=== PATIENT | female | born 1985 | race Caucasian/White ===

== ENCOUNTER → 2020-03-07 10:26 | Outpatient (BNVA) | payer OTHER, MEDICAID, SELFPAY | PROVIDERS: PCP Nurse Practitioner Family; Referring Provider Nurse Practitioner Family; Visit Provider Student in an Organized Health Care Education/Training Program | DX: Z76.89 Persons encountering health services in other specified circumstances (principal) ==

== ENCOUNTER 2021-03-11 11:26 | Outpatient (REF) | payer OTHER, MEDICAID, SELFPAY ==
[2021-03-11 12:37] LABS: Influenza A PCR NEGATIVE (Negative); Influenza B PCR NEGATIVE (Negative); Resp Syncy Virus RNA Qual PCR NEGATIVE (Negative); SARS COV2 PCR INHOUSE NEGATIVE (Negative)
== END 2021-03-11 11:27 | disposition home or self-care (01) ==
LOC: HO.LNP 11:26
PROVIDERS: Visit Provider Internal Medicine
DX: Z20.822 Contact with and (suspected) exposure to COVID-19 (principal); R43.9 Unspecified disturbances of smell and taste
CPT/HCPCS: 0241U

== ENCOUNTER 2021-11-24 13:47 | Outpatient (REF) | payer OTHER, MEDICAID, SELFPAY ==
--- NOTE | ~2021-11-24 | XR_ITS ---
EXAMINATION: XR LUMBOSACRAL SPINE CLINICAL INFORMATION: Low back pain. COMPARISON: Lumbar spine 01/23/2019 TECHNIQUE: Three views of the lumbosacral spine. FINDINGS: The vertebral bodies and posterior elements are normal. The disc spaces are preserved and the vertebral alignment is normal. The paraspinal soft tissues are normal. IUD within the pelvis. XR/XR lumbar spine 2-3V IMPRESSION: Unremarkable examination.
== END 2021-11-24 13:48 | disposition home or self-care (01) ==
LOC: HO.HMGCX 13:47
PROVIDERS: PCP Nurse Practitioner Family; Visit Provider Nurse Practitioner Family
DX: M54.50 Low back pain, unspecified (principal)
CPT/HCPCS: 72100

== ENCOUNTER 2023-02-11 08:21 | Outpatient (AMB) | payer OTHER, MEDICAID, SELFPAY ==
--- NOTE | 2023-02-11 08:27 | MHC.OFFWIV ---
Intake Vital Signs 02/11/23 08:34 Weight 126 lb BP 110/76 Blood Pressure Location Rt brachial Position Sitting Pulse 102 H Pulse Source Pulse Oximeter Pulse Oximetry (%) 96 Oxygen Delivery Method Room Air Intake Visit Reasons: EP-Sinus?/[phone] Intake Note: Patient here for sinus infection, chest congestion,cough, headaches and pressure. Patient Tobacco Use Status: Current everyday Tobacco user Allergies No Known Allergies [No Known Allergies*] Allergy (Verified 02/11/23 08:28) Do you need a note to return to daycare/school/sports/work: No HPI HPI Comments History of Present Illness Details 37-year-old female presents for concern of sinus infection. Patient states that she developed a cold approximately 10 days ago spreads sinus pressure nasal congestion occasional discharge pleuritic chest pain denies any leg swelling fever chills calf tenderness. [facility] Medical History (Updated 02/11/23 @ 08:59 by YESICA Levin) TMJ (dislocation of temporomandibular joint) Depression Anxiety Nemaline myopathy Family History Father Substance use disorder Maternal Grandfather Substance use disorder Sister Mental health disorder Social History Housing: House Alcohol intake: never Patient Tobacco Use Status: Current everyday Tobacco user Cigarette Packs Per Day: 1 e-Cigarette/Vaping Use: Never Used Second Hand Smoke Exposure: Yes service: No Current occupational status: employed Current occupation: [employer] Current occupational exposures/hazards: Yes Cognitive needs: No Hearing needs: No Vision needs: No Review of Systems Const All systems reviewed & are unremarkable except as noted in HPI and below ENT Reports nasal congestion and Reports nasal discharge Resp Reports chest congestion and Reports cough Physical Exam Vital Signs: Last Vital Signs Pulse 102 H 02/11/23 08:34 BP 110/76 02/11/23 08:34 Pulse Ox 96 02/11/23 08:34 Oxygen Delivery Method Room Air 02/11/23 08:34 Const General: cooperative, no acute distress and alert Orientation/consciousness: patient oriented x3 Limitations: no limitations HEENT Other: TTP over the maxillary sinuses bilaterally Head: Yes normal to inspection Ears: hearing grossly normal bilaterally and external ears normal General nose exam: Normal external nose present Eyes General: appearance normal, both eyes and all related structures Neck Neck: Yes normal visual inspection Chest Chest palpation & inspection: normal inspection of the chest Resp Effort & Inspection: normal respiratory effort, able to speak in complete sentences and no audible wheezes Auscultation: clear to auscultation bilaterally Cardio Rate: regular rate Rhythm: regular rhythm GI Inspection: Yes normal to inspection Palpation (GI): Soft to palpation and nontender Skin General skin exam: no rashes or lesions noted Neuro General: patient oriented x3 Psych Appearance: grossly normal Mental Status: mental status grossly normal Speech and movement: Normal speech and movement present Affect: normal affect Attitude: cooperative Thought process: Normal thought process present Thought content: Normal thought content present Assessment & Plan Assessment & Plan (1) Sinusitis: Code(s): J32.9 - Chronic sinusitis, unspecified Qualifiers: Sinusitis location: maxillary Chronicity: acute Recurrence: not specified as recurrent Qualified Code(s): J01.00 - Acute maxillary sinusitis, unspecified Plan: VSS. Exam patient presents alert oriented no distress tenderness to palpation of maxillary sinuses given duration of symptoms and history of sinus infection will treat with Augmentin in saline nasal spray. Discharge instructions, follow up and treatment are discussed with patient in my usual fashion. Alternatives in treatment are also discussed. The patient will return for worsening symptoms or as needed. Advised that any labs/imaging ordered will be followed up on and contact made if further treatment needed. Counseled that patient's condition may require further evaluation and/or treatment. Symptoms of concern for worsening disorder discussed in detail in my customary manner. Patient does verbalize understanding of the plan, there are no apparent barriers to communication. The patient is given the opportunity to ask questions and have them answered to his/her satisfaction Medications: New amoxicillin-pot clavulanate 875-125 mg 1 tab PO BID 7 days 14 tabs 0RF sodium chloride 0.65% (Saline Mist) 2 sprays intranasal QID PRN 44 mL 0RF dry nasal passages Coding Level of Care Code Est Pt Level 3 (54077) Diagnoses Acute maxillary sinusitis, recurrence not specified J01.00 Sinusitis location: maxillary Chronicity: acute Recurrence: not specified as recurrent
[2023-02-11 08:34] VITALS: BP 110/76; PULSE 102; O2SAT 96
== END 2023-02-11 08:54 | disposition home or self-care (01) ==
PROVIDERS: PCP Nurse Practitioner Family; Visit Provider Physician Assistant
DX: J01.00 Acute maxillary sinusitis, unspecified (principal)
CPT/HCPCS: 99213

== ENCOUNTER 2023-06-02 08:23 | Outpatient (AMB) | payer OTHER, MEDICAID, SELFPAY ==
[2023-06-02 08:51] VITALS: BP 118/68; PULSE 97; TEMP 36.4; O2SAT 97; BMI 20.5
--- NOTE | 2023-06-02 08:51 | AM.OFFWIN_ITS ---
Intake Vital Signs 06/02/23 08:51 Height 5 ft 6 in Weight 127 lb BMI 20.5 BP 118/68 Blood Pressure Location Lt brachial Position Sitting Pulse 97 Pulse Source Pulse Oximeter Temp 97.6 F Pulse Oximetry (%) 97 Oxygen Delivery Method Room Air Intake Visit Reasons: EST/sinus pressure/congestion ([phone]) Intake Note: pt is here today for sinus pressure congestion started wednesday Patient Tobacco Use Status: Current everyday Tobacco user Allergies No Known Allergies [No Known Allergies*] Allergy (Verified 06/02/23 08:51) Do you need a note to return to daycare/school/sports/work: Yes HPI EST/sinus pressure/congestion ([phone]) HPI Details This is a 37-year-old female patient who presents today for a sick visit. States that she tested positive for COVID 10 days ago. Most of her symptoms have resolved, however she has developed worsening sinus pressure and productive cough. She states she does get sinus infections following respiratory illnesses. Denies any fever/chills. Denies shortness of breath. [facility] Medical History TMJ (dislocation of temporomandibular joint) Depression Anxiety Nemaline myopathy Family History Father Substance use disorder Maternal Grandfather Substance use disorder Sister Mental health disorder Social History Housing: House Alcohol intake: never Patient Tobacco Use Status: Current everyday Tobacco user Cigarette Packs Per Day: 1 e-Cigarette/Vaping Use: Never Used Second Hand Smoke Exposure: Yes service: No Current occupational status: employed Current occupation: [employer] Current occupational exposures/hazards: Yes Cognitive needs: No Hearing needs: No Vision needs: No Review of Systems Const All systems reviewed & are unremarkable except as noted in HPI and below Physical Exam Vital Signs: Last Vital Signs Temp 97.6 F 06/02/23 08:51 Pulse 97 06/02/23 08:51 BP 118/68 06/02/23 08:51 Pulse Ox 97 06/02/23 08:51 Oxygen Delivery Method Room Air 06/02/23 08:51 BMI result Body Mass Index 20.5 Const General: cooperative and no acute distress Nutritional Appearance: average body habitus HEENT Head: Yes normal to inspection Ears: hearing grossly normal bilaterally General nose exam: Normal external nose present and Nasal discharge present mucoid Face and sinus: Yes sinus tenderness (frontal/maxillary) Mouth: Normal oral and palatal mucosa present Neck Neck: Yes no lymphadenopathy Resp Effort & Inspection: normal respiratory effort and Actively coughing Quality: p roductive Auscultation: clear to auscultation bilaterally Cardio Jugular venous distension: no JVD Palpation: normal PMI Rate: regular rate Rhythm: regular rhythm Skin General skin exam: no rashes or lesions noted Extrem General: Yes capillary refill normal and Yes no clubbing, cyanosis or edema Psych Appearance: grossly normal Mental Status: mental status grossly normal Speech and movement: Normal speech and movement present Assessment & Plan Assessment & Plan (1) Acute maxillary sinusitis: Code(s): J01.00 - Acute maxillary sinusitis, unspecified Qualifiers: Recurrence: non-recurrent Qualified Code(s): J01.00 - Acute maxillary sinusitis, unspecified Plan: Patient has done well in previous years when developing sinusitis on augmentin. Will start her on this. We reviewed indications, use, possible side effects. I also recommended she try some [id number] decongestants. Advised rest, hydration, increase vitamin C intake. If she does not improve with treatment, or symptoms worsen/new symptoms develop, she should return to the clinic for further evaluation. She verbalizes understanding and agrees to plan. Work note provided. Medications: Refilled amoxicillin-pot clavulanate 875-125 mg 1 tab PO BID 14 tabs 0RF 7 days J01.00 - Acute maxillary sinusitis, unspecified Coding Level of Care Code Est Pt Level 3 (05327) Diagnoses Acute non-recurrent maxillary sinusitis J01.00 Recurrence: non-recurrent
== END 2023-06-02 09:21 | disposition home or self-care (01) ==
PROVIDERS: PCP Nurse Practitioner Family; Visit Provider Nurse Practitioner Family
DX: J01.00 Acute maxillary sinusitis, unspecified (principal)
CPT/HCPCS: 99213

== ENCOUNTER 2023-12-07 08:15 | Outpatient (AMB) | payer OTHER, MEDICAID, SELFPAY ==
--- NOTE | 2023-12-07 08:22 | A.OFFPC_ITS ---
Vital Signs 12/07/23 08:26 12/07/23 08:45 Height 5 ft 6 in Weight 126 lb BMI 20.3 BP 110/70 Blood Pressure Location Rt brachial Position Sitting Pulse 110 H 86 Pulse Source Pulse Oximeter Pulse Oximetry (%) 97 Oxygen Delivery Method Room Air Intake Visit Reasons: PE Intake Note: Patient here for physical exam. Pap: unknown due for one Allergies oxycodone Adverse Reaction (Mild, Uncoded 12/07/23 08:27) Hives Medication List - Last Reconciled 12/07/23 by SHERLYN Sierra acetaminophen (Tylenol Extra Strength) 1,000 mg PO Q6H PRN clonazepam 0.5 mg PO BID PRN copper (ParaGard T 380A) intrauterine ibuprofen 800 mg PO TID PRN loratadine (Claritin) 10 mg PO DAILY mirtazapine 45 mg PO BEDTIME sodium chloride 0.65% (Saline Mist) 2 sprays intranasal QID PRN tizanidine 2 mg PO Q8H PRN 90 days venlafaxine ER 75 mg PO DAILY venlafaxine ER 37.5 mg PO DAILY Tobacco use date assessed: 12/07/23 Dental Screening Dental Screen Date: 12/07/23 Did you have a dental visit in the last 12 months?: Yes Did you have a dental problem in the last 6 months where you did not have access to dental care?: No Was dental information given to patient?: Patient has dentist HPI PE HPI Details Pt is here for a PE. Will order labs. 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 Pt has a family hx of breast cancer (maternal grandmother). Will order mammogram. She recently underwent a hiatal hernia repair. She reports doing well. Pt sees a psychiatrist and therapist. 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) Depression Anxiety Nemaline myopathy Surgical History Hx of esophageal hernia repair Family History Father Substance use disorder Maternal Grandfather Substance use disorder Sister Mental health disorder Social History Housing: House Alcohol intake: never Patient Tobacco Use Status: Current everyday Tobacco user Cigarette Packs Per Day: 1 e-Cigarette/Vaping Use: Never Used Second Hand Smoke Exposure: Yes service: No Current occupational status: employed Current occupation: [employer] Current occupational exposures/hazards: Yes Cognitive needs: No Hearing needs: No Vision needs: No Questionnaire PHQ-9 Over the last 2 weeks, how often have you been bothered by any of the following problems? 1. Little interest or pleasure in doing things: several days 2. Feeling down, depressed, or hopeless: several days 3. Trouble falling or staying asleep, or sleeping too much: more than half the days 4. Feeling tired or having little energy: more than half the days 5. Poor appetite or overeating: more than half the days 6. Feeling bad about yourself - or that you are a failure or have let yourself or your family down: not at all 7. Trouble concentrating on things, such as reading the newspaper or watching television: several days 8. Moving or speaking so slowly that other people could have noticed. Or the opposite - being so fidgety or restless that you have been moving around a lot more than usual: several days 9. Thoughts that you would be better off or of hurting yourself in some way: not at all Total score: 10 Depression Screening Interpretation: Positive (Denies any SI or HI) Depression Screening Follow-up: Existing condition and In treatment Depression Screening Done: Yes 82688 - PHQ-9 Billing: Yes Source: Developed by Drs. Clayton Mcneil, Tricia Rebolledo, Bipin Bradshaw and colleagues, with an educational jasivr from [employer]. Thrive Questionnaire Date Thrive assessed: 11/30/23 I am a: Patient What is your living situation today?: I have a steady place to live Within the past 12 months, did the food you bought not last and you didn't have the money to get more?: Never true Within the past 12 months, did you worry whether your food would run out before you got money to buy more?: Never true Do you have trouble paying for medicines?: No Do you have trouble getting transportation to medical appointments?: No Do you have trouble paying your heating and electricity bill?: Yes Do you have trouble taking care of your child, family member or friend?: No Do you have trouble with day-to-day activities such as bathing, preparing meals, shopping, managing finances, etc.?: No Are you currently unemployed and looking for a job?: No Are you interested in more education?: No Please select the resources that you would like help with: Housing/Residential Currently or been in a relationship where the following occur: I choose not to answer THRIVE Score: 1 AUDIT C Alcohol Use Questionnaire (AUDIT-C) 1. How often do you have a drink containing alcohol?: Monthly or less 2. How many drinks containing alcohol do you have on a typical day when you are drinking?: 1 or 2 3. How often do you have six or more drinks on one occasion?: Never Total Score: 1 Score Reviewed/Action Taken: Yes MARIA D-7 AMB Questionnaire MARIA D-7 Date MARIA D - 7 assessed: 12/07/23 Feeling nervous, anxious, or on edge: 2 = More than half the days Not being able to stop or control worryin = More than half the days Worrying too much about different things: 2 = More than half the days Trouble relaxin = Nearly every day Being so restless that it is hard to sit still: 3 = Nearly every day Becoming easily annoyed or irritable: 1 = Several days Feeling afraid as if something awful might happen: 1 = Several days Total MARIA D-7 score (0-4 normal; 5-9 mild; 10-14 moderate; 15-21 severe): 14 Source: Developed by Drs. Clayton Mcneil, Tricia Rebolledo, Bipin Bradshaw and colleagues, with an educational jasvir from [employer]. MARIA D-7 Assessment Billing MARIA D-7 Assessment Tool: MARIA D-7 Assessment 37960 Review of Systems Const Denies chills and Denies fever(s) Eyes Denies blurry vision ENT Denies vertigo, Denies dizziness and Denies sore throat Card Denies chest pain at rest, Denies chest pain with activity, Denies diaphoresis, Denies dyspnea and Denies dyspnea on exertion Resp Denies cough, Denies dyspnea, Denies dyspnea on exertion and Denies wheezing GI Denies abdominal pain, Denies melena, Denies hematochezia, Denies constipation, Denies diarrhea and Denies loose stools Denies hematuria Musc Denies numbness and Denies tingling Skin/Breast Denies lesions Neuro Denies vertigo, Denies dizziness, Denies numbness and Denies tingling Psych Denies anxiety, Denies depression, Denies homicidal ideation, Denies suicidal ideation and Denies other (substance abuse) Aller/Immun Denies wheezing Physical exam (Primary Care) Vital Signs: Last Vital Signs Pulse 110 H 12/07/23 08:26 BP 110/70 12/07/23 08:26 Pulse Ox 97 12/07/23 08:26 Oxygen Delivery Method Room Air 12/07/23 08:26 BMI result Body Mass Index 20.3 Tobacco/Smoking Status: Tobacco use Status Tobacco use date assessed 12/07/23 12/07/23 08:30 Patient Tobacco Use Status Current everyday Tobacco 12/07/23 08:24 e-Cigarette/Vaping Use Never Used 12/07/23 08:24 PHQ-9: PHQ-9 Score PHQ-9: Total score 10 12/07/23 08:37 Depression Screening Interpretation: Positive (Denies any SI or HI) Depression Screening Follow-up: Existing condition and In treatment Thrive Assessment: Date of Thrive Assessment Date Thrive assessed 11/30/23 12/07/23 08:24 Currently or been in a relationship where the following occur: I choose not to answer Const General: cooperative Nutritional Appearance: well nourished Orientation/consciousness: patient oriented x3 HENMT Head: Yes normal to inspection, Yes normocephalic and Yes atraumatic Ears: TM's normal bilaterally Eyes General: appearance normal, both eyes and all related structures Alignment and Position: alignment normal and position normal Neck Neck: Yes normal visual inspection and Yes no lymphadenopathy Thyroid: Thyroid normal Resp Effort & Inspection: normal respiratory effort Auscultation: clear to auscultation bilaterally Cardio Rate: regular rate Rhythm: regular rhythm Heart sounds: S1 normal heart sound present, S2 normal heart sound present and no murmurs GI Palpation (GI): Soft to palpation and nontender Auscultation: normal bowel sounds Skin Other: lap sites to abdomen, well approximated, no signs of infection Rashes: no rashes Neuro General: patient oriented x3, moves all extremities, no focal motor deficits and deep tendon reflexes 2+ bilaterally Romberg Test: Negative Psych Appearance: grossly normal Mental Status: mental status grossly normal Speech and movement: Normal speech and movement present Affect: normal affect Attitude: cooperative Thought process: Normal thought process present Thought content: Normal thought content present Insight: Good insight present (Psych) Judgement: Good judgement present (Psych) Assessment and Plan Assessment & Plan (1) Encounter for routine adult physical exam with abnormal findings: Code(s): Z00.01 - Encounter for general adult medical examination with abnormal findings Plan: Labs ordered (2) Family hx-breast malignancy: Code(s): Z80.3 - Family history of malignant neoplasm of breast Plan: Mammo ordered Plan The patient agreed to the use of a electromedical service engineer for this encounter. Scribed for SHERLYN Cobb by Hien Srivastava electromedical service engineer, on 12/07/2023 at 08:40 EST. Orders: Orders Comprehensive [place]. Panel Fast Today Z00.01 - Encounter for general adult medical examination with abnormal findings TSH reflex Free T4 Today Z00.01 - Encounter for general adult medical examination with abnormal findings UA CC w/rflx Micro + Cult Today Z00.01 - Encounter for general adult medical examination with abnormal findings MM screening mammo BI Today Z12.31 - Encounter for screening mammogram for malignant neoplasm of breast, Z80.3 - Family history of malignant neoplasm of breast Complete Blood Count Auto Diff Today Z00.01 - Encounter for general adult medical examination with abnormal findings Lipid Panel Today Z00.01 - Encounter for general adult medical examination with abnormal findings Coding Level of Care Code Est Pt Prev Care 18-39y([id number]) Diagnoses Encounter for routine adult physical exam with abnormal findings Z00. Family hx-breast malignancy Z80.3 Additional Codes MARIA D-7 Assessment Billing - MARIA D-7 Assessment Tool: MARIA D-7 Assessment 51225 ([id number])
[2023-12-07 08:26] VITALS: BP 110/70; PULSE 110; O2SAT 97; BMI 20.3
[2023-12-07 08:45] VITALS: PULSE 86
== END 2023-12-07 08:50 | disposition home or self-care (01) ==
PROVIDERS: PCP Nurse Practitioner Family; Visit Provider Nurse Practitioner Family
DX: Z00.00 Encounter for general adult medical examination without abnormal findings (principal); Z80.3 Family history of malignant neoplasm of breast
CPT/HCPCS: 99395

== ENCOUNTER 2024-09-24 11:07 | Outpatient (REF) | payer OTHER, MEDICAID, SELFPAY ==
--- NOTE | ~2024-09-24 | MR_ITS ---
EXAMINATION: MR LUMBAR SPINE WITHOUT IV CONTRAST History: M54.50 - Low back pain, unspecified Technique: Sagittal T1, T2 and STIR, and axial T1 and T2 weighted images of the lumbar spine were obtained per departmental protocol. Comparison: Correlation is made with plain films of the lumbar spine dated 11/24/2021. Findings: The vertebral bodies maintain normal height, alignment, and marrow signal intensity. There is mild disc desiccation at the L4-5 and L5-S1 levels. At T12-L1,there is no evidence of disc herniation, central spinal stenosis, or neural foraminal narrowing. At L1-2, there is no evidence of disc herniation, central spinal stenosis, or neural foraminal narrowing. At L2-3, there is no evidence of disc herniation, central spinal stenosis, or neural foraminal narrowing. At L3-4, there is no evidence of disc herniation, central spinal stenosis, or neural foraminal narrowing. At L4-5, there is a mild broad-based disc protrusion with associated annular tear. There is no central spinal or neural foraminal stenosis. At L5-S1, there is a moderate broad-based disc protrusion with associated annular tear. There is no central spinal or neural foraminal stenosis The conus terminates at the T12-L1 level and demonstrates normal signal intensity. The visualized paraspinal soft tissues are unremarkable. MR/MR lumbar spine wo con Impression: 1. Mild broad-based disc protrusion with annular tear at L4-5. 2. Moderate broad-based disc protrusion with annular tear at L5-S1. Electronically signed by: Clayton Lindsey MD 09/25/2024 09:24 AM EDT
== END 2024-09-24 11:08 | disposition home or self-care (01) ==
LOC: HO.MRI 11:07
PROVIDERS: PCP Nurse Practitioner Family; Visit Provider Nurse Practitioner Family
DX: M54.50 Low back pain, unspecified (principal); M79.604 Pain in right leg; M79.605 Pain in left leg
CPT/HCPCS: 72148

== ENCOUNTER → 2024-09-24 11:07 | Outpatient (BNV) | payer OTHER, MEDICAID, SELFPAY | PROVIDERS: PCP Nurse Practitioner Family; Visit Provider Radiology Diagnostic Radiology | DX: M51.A4 Intervertebral annulus fibrosus defect, small, lumbosacral region (principal) | CPT/HCPCS: 72148 ==

== ENCOUNTER 2024-09-30 09:17 | Outpatient (AMB) | payer OTHER, MEDICAID, SELFPAY ==
[2024-09-30 09:32] VITALS: BP 120/70; PULSE 88; RESP 15; TEMP 36.8; O2SAT 97; BMI 21.6
--- NOTE | 2024-09-30 09:32 | AM.OFFWIN_ITS ---
Intake Vital Signs 09/30/24 09:32 Height 5 ft 6 in Weight 134 lb BMI 21.6 BP 120/70 Blood Pressure Location Lt brachial Position Sitting Respiration 15 Pulse 88 Pulse Source Pulse Oximeter Temp 98.3 F Temp Source Oral Pulse Oximetry (%) 97 Oxygen Delivery Method Room Air Intake Visit Reasons: EP-severe lower back pain Intake Note: Pt is here today c/o lower back pain x2wks Pt states had a MRI ordered by PCP last week no improvement: No injury noted Patient Tobacco Use Status: Current everyday Tobacco user Allergies oxycodone Adverse Reaction (Mild, Uncoded 09/30/24 09:51) Hives HPI HPI Comments History of Present Illness Details History of Present Illness - The patient is a 39-year-old female pr esenting with lumbar spine pain. - She reports a couple of weeks of sever e back pain without any known injury. - Previous similar episodes were associa darshana with musculature issues. - Treatment with ibuprofen has been detr imental due to her known erosive gastritis, causing concern for GI bleeding. - Additional symptoms include leg numbne ss, tingling, and weakness, compromising leg-lift capability. - no loss of control of bladder or bowel s and no saddle parasthesias - She has attempted ice, with temporary numbing relief, yet found no benefit from heat application. - Dexamethasone administration called in by her PCP 3 daysa natali has not ameliorated symptoms. - An MRI was performed to assess lumbar spine issues; results are seen, with referral processes underway for neurosurgery consultation. 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 but needs pain relief in the interim. Physical Exam General: Cooperative, healthy appearing, comfortable, no acute distress and well developed Orientation: Patient oriented x3 Limitations: No limitations Head: Normal to inspection Ears: Hearing grossly normal bilaterally Nose: Normal External nose present Face and sinus: Normal facial exam Eyes: Appearance normal, both eyes and all related structures Neck: Normal visual inspection and Yes full ROM Respiratory: Normal respiratory effort and able to speak in complete sentences. Skin: No rashes or lesions noted Neuro: Patient oriented x3, limping gait Extremities: Normal to inspection, full ROM BL LE, strength on BL LE 5/5, sensation in tact BL LE. [facility] Medical History Paraesophageal hernia Paraesophageal hiatal hernia TMJ (dislocation of temporomandibular joint) Depression Anxiety Nemaline myopathy Surgical History Hx of esophageal hernia repair Family History Father Substance use disorder Maternal Grandfather Substance use disorder Sister Mental health disorder Social History Housing: House Alcohol intake: never Patient Tobacco Use Status: Current everyday Tobacco user Cigarette Packs Per Day: 1 e-Cigarette/Vaping Use: Never Used Second Hand Smoke Exposure: Yes service: No Current occupational status: employed Current occupation: [employer] Current occupational exposures/hazards: Yes Cognitive needs: No Hearing needs: No Vision needs: No Review of Systems Const All systems reviewed & are unremarkable except as noted in HPI and below Physical Exam Vital Signs: Last Vital Signs Temp 98.3 F 09/30/24 09:32 Pulse 88 09/30/24 09:32 Resp 15 09/30/24 09:32 BP 120/70 09/30/24 09:32 Pulse Ox 97 09/30/24 09:32 Oxygen Delivery Method Room Air 09/30/24 09:32 BMI result Body Mass Index 21.6 Assessment & Plan Assessment & Plan (1) Low back pain radiating to both legs: Code(s): M54.50 - Low back pain, unspecified; M79.604 - Pain in right leg; M79.605 - Pain in left leg Plan: Plan The patient will cease dexamethasone and commence a 15-day prednisone tapering regimen to reduce inflammation associated with lumbar spine pain. Acetaminophen is suggested in place of ibuprofen to protect against GI complications due to her past erosive gastritis. As an interim measure for pain relief before sleep, tramadol has been prescribed. MRI lumbar spine results will be pursued, with a neurosurgical consultation in process. Management discussions include medication risks, benefits, and appropriate usage. Follow-up with neurosurgery will enable further evaluation and treatment planning. Explained to patient that if she has any loss of control of her bladder or bowels or experiences saddle paresthesias that she should go straight to the emergency department. Patient was informed and verbally consented to the use of an ambient scribe for clinic note documentation during this visit. Medications: New prednisone take 5 tablets on days 1-4, take 4 tablets on days 5-8, take 3 tablets on days 9-12, take 2 tablet on days 13 and 14 and then one tablet on days 15 and 16. 10 mg PO DIRECTED 54 tabs 0RF tramadol 50 mg PO Q8H PRN 10 tabs 0RF pain Coding Level of Care Code Est Pt Level 4 (61054) Diagnoses Low back pain radiating to both legs M54.50; M79.604; M79.605
== END 2024-09-30 10:48 | disposition home or self-care (01) ==
PROVIDERS: PCP Nurse Practitioner Family; Visit Provider Physician Assistant
DX: M54.50 Low back pain, unspecified (principal); M79.604 Pain in right leg; M79.605 Pain in left leg

== ENCOUNTER → 2024-09-30 09:17 | Outpatient (BNVA) | payer OTHER, MEDICAID, SELFPAY | PROVIDERS: PCP Nurse Practitioner Family; Visit Provider Physician Assistant ==